=== PATIENT | female | born 1940 | race Caucasian/White ===

== ENCOUNTER 2024-03-30 13:12 | Emergency (ER) | payer MEDICARE, SELFPAY ==
[2024-03-30] VITALS (8 sets, daily range): BP systolic 96–136; BP diastolic 70–75; PULSE 56–76; RESP 16–18; TEMP 36.8; O2SAT 95–97
--- NOTE | ~2024-03-30 | CT_ITS ---
EXAMINATION: CT brain wo con DATE: 03/30/2024 14:55 INDICATION: fall . TECHNIQUE: Computed tomography (CT) of the head was performed without intravenous contrast. The mA wa s adjusted according to patient size. Iterative reconstruction technique was employed. The dose-lengt h product was 605.33 mGy-cm. COMPARISON: None. FINDINGS: No acute intracranial hemorrhage or extra-axial fluid collection. No hydrocephalus, mass, or herniation. No acute ischemic infarct. Unremarkable dural venous sinus attenuation. No acute osseous abnormality. The aerated spaces are clear. Moderate atrophy and chronic white matter change. Atherosclerotic intracranial calcification. Bilater al lens replacements. IMPRESSION: No acute intracranial process. Reviewed, dictated and finalized at location K.
--- NOTE | ~2024-03-30 | CT_ITS ---
CT facial & cervical spine wo Ordering provider: Dudley Ladd History: . fall . Comparison: None. Technique: Thin slice axial CT of the facial bones was performed without contrast. Coronal and sagit medina reformatted images were also obtained. . Automated exposure control and iterative reconstruction technique were employed. The dose-length product was 605.33 mGy-cm. FINDINGS: PARANASAL SINUSES: Well aerated. BONES: No facial fracture including no nasal bone fracture. ORBITS AND SUPERFICIAL SOFT TISSUES: The optic globes and orbits are normal. The superficial soft tis sues are normal. VISUALIZED MASTOIDS: Well aerated. LIMITED VISUALIZED BRAIN PARENCHYMA: Normal. IMPRESSION: No facial fracture. CT facial & cervical spine wo Ordering provider: Dudley Ladd History: . fall . Comparison: None. Technique: CT of the cervical spine was performed without contrast. Sagittal and coronal reformatted images were also obtained and reviewed. Automated exposure control and iterative reconstruction ana hnique were employed. The dose-length product was 605.33 mGy-cm. FINDINGS: VERTEBRAE: Fusion of C5, C6 and C7. Minimal anterolisthesis at the level of C7-T1. Otherwise, No subl uxation or acute fracture. The occipital condyles are intact. DISC SPACES: Normal. Multilevel facet joint disease. Multilevel uncovertebral joint osteoarthritic ch anges. Narrowing of the left foramina at the level of C3-C4. Bilateral narrowing of the level of C6-C 7. PARASPINOUS SOFT TISSUES: Normal. IMPRESSION: No acute osseous abnormality cervical spine. Reviewed, dictated and finalized at location A. IMPRESSION: No facial fracture. CT facial & cervical spine wo Ordering provider: Dudley Ladd History: . fall . Comparison: None. Technique: CT of the cervical spine was performed without contrast. Sagittal a nd coronal reformatted images were also obtained and reviewed. Automated expos ure control and iterative reconstruction technique were employed. The dose-jb th product was 605.33 mGy-cm. FINDINGS: VERTEBRAE: Fusion of C5, C6 and C7. Minimal anterolisthesis at the level of C7- T1. Otherwise, No subluxation or acute fracture. The occipital condyles are int act. DISC SPACES: Normal. Multilevel facet joint disease. Multilevel uncovertebral j oint osteoarthritic changes. Narrowing of the left foramina at the level of C3- C4. Bilateral narrowing of the level of C6-C7. PARASPINOUS SOFT TISSUES: Normal.
--- NOTE | 2024-03-30 14:53 | PC.NURSE ---
Patient to cat scan
--- NOTE | 2024-03-30 16:11 | ED.FALL ---
HPI - Fall General Chief Complaint: Fall Stated Complaint: fall, facial injury Time Seen by Provider: 03/30/24 15:12 History of Present Illness HPI Narrative: Pt tripped and fell early this morning and struck face on ground. Pt denies LOC. Pt has some pain to the right side of her face and a small laceration inside her lower lip. Pt denies neck or hip pain. Review of Systems Review of Systems: All systems reviewed & are unremarkable except as noted in HPI and below Exam Const: General: healthy appearing and no acute distress Nutritional Appearance: well nourished Orientation/consciousness: patient oriented x3 Limitations: no limitations HENMT: Face and sinus: sinus tenderness maxillary (left) Mouth: Yes Abnormal oral and palatal mucosa present (small laceration inside lower lip) Teeth and gingiva: dentition normal Eyes: Conjunctivae: conjunctivae normal Pupils: Equal, round and reactive pupils present EOM: EOMs intact bilaterally Neck: Neck: normal visual inspection Chest: Chest palpation & inspection: normal inspection of the chest Resp: Effort & Inspection: normal respiratory effort Auscultation: clear to auscultation bilaterally Cardio: Rate: regular rate Rhythm: regular rhythm GI: Auscultation: normal bowel sounds Skin: General skin exam: normal color Rashes: no rashes Neuro: General: patient oriented x3, moves all extremities and no focal motor deficits Cranial nerves: Yes Nystagmus not present Speech: normal speech Extrem: General: normal to inspection and no clubbing, cyanosis or edema Psych: Mental Status: mental status grossly normal Affect: normal affect Course Vital Signs Vital signs: Vital Signs Temperature 98.2 F 03/30/24 13:15 Pulse Rate 56 L 03/30/24 13:15 Respiratory Rate 16 03/30/24 13:15 Blood Pressure 136/70 03/30/24 13:15 Pulse Oximetry 96 03/30/24 13:15 Oxygen Delivery Room Air 03/30/24 13:15 Temperature 98.2 F 03/30/24 13:15 Pulse Rate 76 03/30/24 16:17 Respiratory Rate 18 03/30/24 16:17 Blood Pressure 96/75 L 03/30/24 16:17 Pulse Oximetry 96 03/30/24 16:18 Oxygen Delivery Room Air 03/30/24 13:15 MDM - Fall MDM Narrative Medical decision making narrative: pt fell and has facial pain no loc, will order CT head and face. CT's ok will send home. Discharge Plan Discharge Clinical Impression: Contusion Patient Disposition: Home, Self-Care Condition: Stable Instructions: Antibiotic Form, Contusion in Adults (ED) Follow-up/Referrals: PHYSICIAN NOT ON STAFF,NONSTAFF [Primary Care Provider] -
== END 2024-03-30 16:36 | disposition home or self-care (01) ==
PROVIDERS: Emergency Provider Emergency Medicine
DX: S00.33XA Contusion of nose, initial encounter (principal); S01.511A Laceration without foreign body of lip, initial encounter; W01.0XXA Fall on same level from slipping, tripping and stumbling without subsequent striking against object, initial encounter
CPT/HCPCS: 70450; 70486; 72125; 99284